=== PATIENT | male | born 1985 | race Two or more races ===

== ENCOUNTER 2021-03-16 00:32 | Inpatient (IN) | payer BC, OTHER ==
[~2021-03-16] VITALS: Ht 177.8 cm; Wt 123.2 kg
[2021-03-16] MEDS ORDERED: DexAMETHasone SOD PHOS 10MG/1ML VIAL INJ IV ONE (01:15)
[2021-03-16 03:05] LABS: Basophils # (auto) 0 10 ^3/uL (0-0.2); Basophils % (auto) 0.4 % (0.0-2.0); Eosinophils # (auto) 0 10 ^3/uL (0-0.8); Hematocrit 45.6 % (41.0-53.0); Hemoglobin 15.8 g/dL (13.5-17.5); Lymphocytes # (auto) 0.9 10 ^3/uL (0.4-5.4); Lymphocytes % (auto) 9.9 % (10.0-50.0); Mean Corpuscular Hemoglobin 27.2 pg (28.0-32.0); Mean Corpuscular Hgb Conc. 34.6 g/dL (32.0-36.0); Mean Corpuscular Volume 78.6 fL (80.0-100.0); Monocytes # (auto) 0.6 10 ^3/uL (0-1.3); Neutrophils # (auto) 7.7 10 ^3/uL (1.6-8.6); Neutrophils % (auto) 83.7 % (37.0-80.0); Nucleated Red Blood Cells % 0.1 %; Red Blood Cells 5.81 10^6/uL (4.5-5.90); Red Cell Distribution Width 14.4 % (11.8-14.3); White Blood Cell 9.2 10^3/uL (4.4-10.8)
[2021-03-16 03:17] LABS: INR 1.09 (0.9-1.15)
[2021-03-16 03:35] LABS: Lactic Acid w/Reflex 2.6 mmol/L (0.4-2.0)
[2021-03-16] MEDS ORDERED: TEMAZEPAM 15 MG CAP PO PRN (06:00)
[2021-03-16] MEDS ORDERED: DOCUSATE SOD 100 MG CAP PO PRN (06:00)
[2021-03-16] MEDS ORDERED: MORPHINE SULFATE INJECTION 2 MG/2 ML SYRG IV PRN (06:00)
[2021-03-16] MEDS ORDERED: HYDROcodone-ACET 5/325MG TAB PO PRN (06:00)
[2021-03-16] MEDS ORDERED: NITROGLYCERIN 0.4 MG SL TAB SL PRN (06:00)
[2021-03-16] MEDS ORDERED: ONDANSETRON HCL 4 MG/2 ML VIAL IV PRN (06:00)
[2021-03-16] MEDS ORDERED: SODIUM CHLORIDE 0.9% 1,000 ML IV ONE (06:00)
[2021-03-16] MEDS: BUDESONIDE (INHALATION) 180 MCG IH IN SCH ×2 (08:01→20:03)
[2021-03-16] MEDS: ALBUTEROL SULF HFA 90MCG INH 200DOSE IN PRN ×2 (08:01→20:03)
[2021-03-16 08:58] VITALS: BP 150/94
[2021-03-16 09:12] LABS: Chloride 94 mmol/L (98-107); Potassium 4.6 mmol/L (3.5-5.1); Sodium 127 mmol/L (136-145)
[2021-03-16 09:13] LABS: Anion Gap 12 (5-15); Carbon Dioxide 21 mmol/L (21-32)
[2021-03-16 09:14] LABS: Alkaline Phosphatase 59 U/L (45-117); Aspartate Aminotransferase 43 U/L (15-37); BUN/Creatinine Ratio 8.4; Blood Urea Nitrogen 14 mg/dL (7-18); GFR African American 62 mL/min; GFR Non-African American 51 mL/min; Glucose 362 mg/dL (74-106)
[2021-03-16 09:15] LABS: Alanine Aminotransferase 44 U/L (16-61); Albumin 2.5 g/dL (3.4-5.0); Bilirubin, Total 0.5 mg/dL (0.2-1.0); Calcium 8.2 mg/dL (8.5-10.1)
[2021-03-16 09:33] VITALS: BP 151/100
[2021-03-16] MEDS: DOXYCYCLINE 100MG/250ML 250 ML IV SCH ×2 (10:00→22:40)
[2021-03-16] MEDS ORDERED: REMDESIVIR PER PHARMACY 0 ML IV SCH (11:00)
[2021-03-16] MEDS: ZINC SULFATE 220mg CAP or TAB PO SCH (11:03)
[2021-03-16] MEDS: FAMOTIDINE (10MG/ML) 2ML VL IV SCH ×2 (11:03→22:39)
[2021-03-16] MEDS: ENOXAPARIN SOD 40 MG/0.4 ML SYRINGE SC SCH ×2 (11:04→22:40)
[2021-03-16] MEDS: ASCORBIC ACID 1,000 MG TAB PO SCH (11:04)
[2021-03-16] MEDS: CHOLECALCIFEROL (VITD3) 2,000 UNIT CAP/TAB PO SCH (11:04)
[2021-03-16] MEDS: MULTIPLE VITAMIN TAB PO SCH (11:04)
[2021-03-16] MEDS ORDERED: TOCILIZUMAB 400 MG in SODIUM CHL 0.9% 80 ML IV ONE ×2 (11:30→11:45)
[2021-03-16] MEDS: IVERMECTIN 3 MG TAB PO SCH (11:48)
[2021-03-16] MEDS: ACETAMINOPHEN 500 MG TAB PO PRN (12:31)
[2021-03-16 13:00] VITALS: BP 158/92
[2021-03-16] MEDS ORDERED: REMDESIVIR 200 MG in NS 210ml LOADING DOSE ADULT IV ONE (13:00)
[2021-03-16] MEDS: DexAMETHasone SOD PHOS 10MG/1ML VIAL INJ IV SCH (15:03)
[2021-03-16 17:00] VITALS: BP 140/91
[2021-03-16 22:00] VITALS: BP 182/89
[2021-03-16] MEDS: hydrALAZINE HCL 20 MG/ML VL IV PRN (22:41)
[2021-03-17 05:00] VITALS: BP 154/89
[2021-03-17 06:40] LABS: Basophils # (auto) 0.1 10 ^3/uL (0-0.2); Basophils % (auto) 0.4 % (0.0-2.0); Eosinophils # (auto) 0 10 ^3/uL (0-0.8); Hematocrit 45.7 % (41.0-53.0); Hemoglobin 15.5 g/dL (13.5-17.5); Lymphocytes # (auto) 1.3 10 ^3/uL (0.4-5.4); Lymphocytes % (auto) 9.8 % (10.0-50.0); Mean Corpuscular Hemoglobin 27.1 pg (28.0-32.0); Mean Corpuscular Volume 79.7 fL (80.0-100.0); Monocytes # (auto) 0.8 10 ^3/uL (0-1.3); Monocytes % (auto) 6.4 % (0.0-12.0); Neutrophils # (auto) 10.6 10 ^3/uL (1.6-8.6); Neutrophils % (auto) 83.4 % (37.0-80.0); Nucleated Red Blood Cells % 0.2 %; Red Blood Cells 5.73 10^6/uL (4.5-5.90); Red Cell Distribution Width 14.8 % (11.8-14.3); White Blood Cell 12.7 10^3/uL (4.4-10.8)
[2021-03-17] MEDS: ALBUTEROL SULF HFA 90MCG INH 200DOSE IN PRN ×2 (08:13→23:03)
[2021-03-17] MEDS: BUDESONIDE (INHALATION) 180 MCG IH IN SCH ×2 (08:13→22:00)
[2021-03-17 09:00] VITALS: BP 158/104
[2021-03-17] MEDS: IVERMECTIN 3 MG TAB PO SCH (09:49)
[2021-03-17] MEDS: CHOLECALCIFEROL (VITD3) 2,000 UNIT CAP/TAB PO SCH (09:50)
[2021-03-17] MEDS: MULTIPLE VITAMIN TAB PO SCH (09:50)
[2021-03-17] MEDS: ENOXAPARIN SOD 40 MG/0.4 ML SYRINGE SC SCH ×2 (09:50→21:44)
[2021-03-17] MEDS: DexAMETHasone SOD PHOS 10MG/1ML VIAL INJ IV SCH (09:50)
[2021-03-17] MEDS: ASCORBIC ACID 1,000 MG TAB PO SCH (09:50)
[2021-03-17] MEDS: FAMOTIDINE (10MG/ML) 2ML VL IV SCH ×2 (09:51→21:44)
[2021-03-17] MEDS: DOXYCYCLINE 100MG/250ML 250 ML IV SCH ×2 (09:51→21:44)
[2021-03-17] MEDS: ZINC SULFATE 220mg CAP or TAB PO SCH (09:51)
[2021-03-17] MEDS ORDERED: TOCILIZUMAB 400 MG in SODIUM CHL 0.9% 80 ML IV ONE (11:45)
[2021-03-17 12:53] VITALS: BP 133/81
[2021-03-17 14:24] LABS: Calcium 8.7 mg/dL (8.5-10.1); Potassium 5.1 mmol/L (3.5-5.1)
[2021-03-17 14:28] LABS: Bilirubin, Total 0.4 mg/dL (0.2-1.0); Total Protein 8.7 g/dL (6.4-8.2)
[2021-03-17 14:45] LABS: Albumin 2.5 g/dL (3.4-5.0); BUN/Creatinine Ratio 17.5
[2021-03-17] MEDS: REMDESIVIR 100mg 100 MG in SODIUM CHL 0.9% 230 ML IV SCH (15:37)
[2021-03-17 17:00] VITALS: BP 143/87
[2021-03-17 20:00] VITALS: BP 134/111
[2021-03-17 22:00] VITALS: BP 134/111
[2021-03-18 05:00] VITALS: BP 134/86
[2021-03-18] MEDS: ALBUTEROL SULF HFA 90MCG INH 200DOSE IN PRN ×2 (06:40→22:18)
[2021-03-18] MEDS: BUDESONIDE (INHALATION) 180 MCG IH IN SCH ×2 (06:40→22:18)
[2021-03-18 08:00] VITALS: BP 155/70
[2021-03-18 09:00] VITALS: BP 155/70
[2021-03-18] MEDS: FAMOTIDINE (10MG/ML) 2ML VL IV SCH ×2 (09:13→22:01)
[2021-03-18] MEDS: DexAMETHasone SOD PHOS 10MG/1ML VIAL INJ IV SCH (09:13)
[2021-03-18] MEDS: IVERMECTIN 3 MG TAB PO SCH (09:14)
[2021-03-18] MEDS: ZINC SULFATE 220mg CAP or TAB PO SCH (09:14)
[2021-03-18] MEDS: ASCORBIC ACID 1,000 MG TAB PO SCH (09:14)
[2021-03-18] MEDS: MULTIPLE VITAMIN TAB PO SCH (09:14)
[2021-03-18] MEDS: DOXYCYCLINE 100MG/250ML 250 ML IV SCH ×2 (09:14→22:01)
[2021-03-18] MEDS: CHOLECALCIFEROL (VITD3) 2,000 UNIT CAP/TAB PO SCH (09:15)
[2021-03-18] MEDS: ENOXAPARIN SOD 40 MG/0.4 ML SYRINGE SC SCH ×2 (09:15→22:01)
[2021-03-18] MEDS: hydrALAZINE HCL 20 MG/ML VL IV PRN (09:17)
[2021-03-18 10:39] LABS: Eosinophils # (auto) 0 10 ^3/uL (0-0.8); Lymphocytes # (auto) 1.2 10 ^3/uL (0.4-5.4); Neutrophils % (auto) 87.4 % (37.0-80.0)
[2021-03-18 10:41] LABS: Basophils # (auto) 0.2 10 ^3/uL (0-0.2); Basophils % (auto) 0.8 % (0.0-2.0); Hematocrit 44.1 % (41.0-53.0); Hemoglobin 14.7 g/dL (13.5-17.5); Lymphocytes % (auto) 6.6 % (10.0-50.0); Mean Corpuscular Hemoglobin 26.7 pg (28.0-32.0); Mean Corpuscular Hgb Conc. 33.5 g/dL (32.0-36.0); Mean Corpuscular Volume 79.7 fL (80.0-100.0); Monocytes % (auto) 5.2 % (0.0-12.0); Neutrophils # (auto) 16.2 10 ^3/uL (1.6-8.6); Nucleated Red Blood Cells % 0.1 %; Red Blood Cells 5.53 10^6/uL (4.5-5.90); Red Cell Distribution Width 14.9 % (11.8-14.3); White Blood Cell 18.5 10^3/uL (4.4-10.8)
[2021-03-18 10:57] LABS: Albumin 2.5 g/dL (3.4-5.0); Calcium 8.5 mg/dL (8.5-10.1); Potassium 4.9 mmol/L (3.5-5.1)
[2021-03-18 11:01] LABS: BUN/Creatinine Ratio 21.7; Bilirubin, Total 0.4 mg/dL (0.2-1.0); Total Protein 8.4 g/dL (6.4-8.2)
[2021-03-18 13:00] VITALS: BP 122/80
[2021-03-18] MEDS: REMDESIVIR 100mg 100 MG in SODIUM CHL 0.9% 230 ML IV SCH (16:38)
[2021-03-18 17:00] VITALS: BP 130/77
[2021-03-18 22:00] VITALS: BP 132/62
[2021-03-19 05:00] VITALS: BP 124/72
[2021-03-19] MEDS: INSULIN LANTUS (GLARGINE) 1 /0.01ml (100units/ml) SC SCH (06:29)
[2021-03-19 06:37] LABS: Basophils # (auto) 0 10 ^3/uL (0-0.2); Eosinophils # (auto) 0 10 ^3/uL (0-0.8)
[2021-03-19 06:40] LABS: Basophils % (auto) 0.2 % (0.0-2.0); Hematocrit 44.1 % (41.0-53.0); Lymphocytes # (auto) 1.7 10 ^3/uL (0.4-5.4); Lymphocytes % (auto) 11.9 % (10.0-50.0); Mean Corpuscular Volume 79.5 fL (80.0-100.0); Monocytes % (auto) 6.7 % (0.0-12.0); Neutrophils # (auto) 11.9 10 ^3/uL (1.6-8.6); Neutrophils % (auto) 81.2 % (37.0-80.0); Nucleated Red Blood Cells % 0.1 %; Red Blood Cells 5.55 10^6/uL (4.5-5.90); Red Cell Distribution Width 14.6 % (11.8-14.3); White Blood Cell 14.7 10^3/uL (4.4-10.8)
[2021-03-19 06:56] LABS: Albumin 2.4 g/dL (3.4-5.0); Calcium 8.6 mg/dL (8.5-10.1); Potassium 4.6 mmol/L (3.5-5.1)
[2021-03-19 07:06] LABS: Bilirubin, Total 0.4 mg/dL (0.2-1.0); Total Protein 7.8 g/dL (6.4-8.2)
[2021-03-19] MEDS: ALBUTEROL SULF HFA 90MCG INH 200DOSE IN PRN ×2 (07:13→23:28)
[2021-03-19] MEDS: BUDESONIDE (INHALATION) 180 MCG IH IN SCH ×2 (07:14→22:54)
[2021-03-19 09:00] VITALS: BP 139/107
[2021-03-19] MEDS: DexAMETHasone SOD PHOS 10MG/1ML VIAL INJ IV SCH (09:57)
[2021-03-19] MEDS: DOXYCYCLINE 100MG/250ML 250 ML IV SCH ×3 (09:58→22:00)
[2021-03-19] MEDS: IVERMECTIN 3 MG TAB PO SCH (09:58)
[2021-03-19] MEDS: ZINC SULFATE 220mg CAP or TAB PO SCH (09:58)
[2021-03-19] MEDS: FAMOTIDINE (10MG/ML) 2ML VL IV SCH ×2 (09:58→22:00)
[2021-03-19] MEDS: MULTIPLE VITAMIN TAB PO SCH (09:58)
[2021-03-19] MEDS: ASCORBIC ACID 1,000 MG TAB PO SCH (09:59)
[2021-03-19] MEDS: CHOLECALCIFEROL (VITD3) 2,000 UNIT CAP/TAB PO SCH (09:59)
[2021-03-19] MEDS: ENOXAPARIN SOD 40 MG/0.4 ML SYRINGE SC SCH ×2 (09:59→22:01)
[2021-03-19] MEDS: hydrALAZINE HCL 20 MG/ML VL IV PRN (10:18)
[2021-03-19 13:00] VITALS: BP 137/104
[2021-03-19] MEDS: REMDESIVIR 100mg 100 MG in SODIUM CHL 0.9% 230 ML IV SCH (15:09)
[2021-03-19 17:00] VITALS: BP 129/73
[2021-03-19 20:00] VITALS: BP 140/80
[2021-03-19 22:00] VITALS: BP 140/80
[2021-03-20 05:00] VITALS: BP 141/93
[2021-03-20 06:28] LABS: Basophils # (auto) 0.1 10 ^3/uL (0-0.2); Eosinophils # (auto) 0 10 ^3/uL (0-0.8); Hemoglobin 15.1 g/dL (13.5-17.5); Nucleated Red Blood Cells % 0.1 %
[2021-03-20 06:30] LABS: Basophils % (auto) 0.7 % (0.0-2.0); Eosinophils % (auto) 0.1 % (0.0-7.0); Hematocrit 45.6 % (41.0-53.0); Lymphocytes % (auto) 13.5 % (10.0-50.0); Mean Corpuscular Hemoglobin 26.4 pg (28.0-32.0); Mean Corpuscular Hgb Conc. 33.1 g/dL (32.0-36.0); Mean Corpuscular Volume 79.8 fL (80.0-100.0); Monocytes # (auto) 0.6 10 ^3/uL (0-1.3); Monocytes % (auto) 4.4 % (0.0-12.0); Neutrophils % (auto) 81.3 % (37.0-80.0); Red Blood Cells 5.72 10^6/uL (4.5-5.90); Red Cell Distribution Width 14.5 % (11.8-14.3); White Blood Cell 14.7 10^3/uL (4.4-10.8)
[2021-03-20 06:38] LABS: Potassium 4.5 mmol/L (3.5-5.1)
[2021-03-20 06:45] LABS: Albumin 2.5 g/dL (3.4-5.0); BUN/Creatinine Ratio 18.6; Calcium 8.5 mg/dL (8.5-10.1)
[2021-03-20 06:47] LABS: Bilirubin, Total 0.6 mg/dL (0.2-1.0); Total Protein 7.6 g/dL (6.4-8.2)
[2021-03-20] MEDS: INSULIN LANTUS (GLARGINE) 1 /0.01ml (100units/ml) SC SCH (06:51)
[2021-03-20] MEDS: ALBUTEROL SULF HFA 90MCG INH 200DOSE IN PRN ×2 (07:09→22:49)
[2021-03-20] MEDS: BUDESONIDE (INHALATION) 180 MCG IH IN SCH ×2 (07:09→21:35)
[2021-03-20 09:00] VITALS: BP 139/82
[2021-03-20] MEDS: ZINC SULFATE 220mg CAP or TAB PO SCH (09:23)
[2021-03-20] MEDS: DOXYCYCLINE 100MG/250ML 250 ML IV SCH ×2 (09:23→22:22)
[2021-03-20] MEDS: DexAMETHasone SOD PHOS 10MG/1ML VIAL INJ IV SCH (09:23)
[2021-03-20] MEDS: FAMOTIDINE (10MG/ML) 2ML VL IV SCH (09:23)
[2021-03-20] MEDS: MULTIPLE VITAMIN TAB PO SCH (09:23)
[2021-03-20] MEDS: ASCORBIC ACID 1,000 MG TAB PO SCH (09:24)
[2021-03-20] MEDS: ENOXAPARIN SOD 40 MG/0.4 ML SYRINGE SC SCH ×2 (09:24→22:21)
[2021-03-20] MEDS: IVERMECTIN 3 MG TAB PO SCH (09:24)
[2021-03-20] MEDS: CHOLECALCIFEROL (VITD3) 2,000 UNIT CAP/TAB PO SCH (09:24)
[2021-03-20 13:00] VITALS: BP 153/86
[2021-03-20] MEDS: REMDESIVIR 100mg 100 MG in SODIUM CHL 0.9% 230 ML IV SCH (15:14)
[2021-03-20 16:56] VITALS: BP 138/76
[2021-03-20 20:00] VITALS: BP 153/70
[2021-03-20] MEDS ORDERED: FUROSEMIDE 40 MG/4 ML VIAL IV ONE (20:00)
[2021-03-20 22:00] VITALS: BP 153/70
[2021-03-21 05:00] VITALS: BP 117/81
[2021-03-21] MEDS: INSULIN LANTUS (GLARGINE) 1 /0.01ml (100units/ml) SC SCH (06:44)
[2021-03-21] MEDS: BUDESONIDE (INHALATION) 180 MCG IH IN SCH ×2 (07:07→18:45)
[2021-03-21] MEDS: ALBUTEROL SULF HFA 90MCG INH 200DOSE IN PRN ×2 (07:07→20:46)
[2021-03-21 07:41] LABS: Basophils # (auto) 0 10 ^3/uL (0-0.2); Basophils % (auto) 0.3 % (0.0-2.0); Eosinophils # (auto) 0.1 10 ^3/uL (0-0.8); Hematocrit 49.6 % (41.0-53.0); Hemoglobin 16.5 g/dL (13.5-17.5); Lymphocytes # (auto) 1.8 10 ^3/uL (0.4-5.4); Lymphocytes % (auto) 12.5 % (10.0-50.0); Mean Corpuscular Hemoglobin 26.6 pg (28.0-32.0); Mean Corpuscular Hgb Conc. 33.4 g/dL (32.0-36.0); Mean Corpuscular Volume 79.5 fL (80.0-100.0); Monocytes # (auto) 0.8 10 ^3/uL (0-1.3); Monocytes % (auto) 5.5 % (0.0-12.0); Neutrophils # (auto) 11.8 10 ^3/uL (1.6-8.6); Neutrophils % (auto) 80.7 % (37.0-80.0); Nucleated Red Blood Cells % 0.3 %; Red Blood Cells 6.23 10^6/uL (4.5-5.90); Red Cell Distribution Width 14.2 % (11.8-14.3); White Blood Cell 14.6 10^3/uL (4.4-10.8)
[2021-03-21 07:46] LABS: BUN/Creatinine Ratio 19.2; Calcium 8.8 mg/dL (8.5-10.1); Potassium 4.4 mmol/L (3.5-5.1)
[2021-03-21 09:00] VITALS: BP 128/84
[2021-03-21] MEDS: DexAMETHasone SOD PHOS 10MG/1ML VIAL INJ IV SCH (10:18)
[2021-03-21] MEDS: FUROSEMIDE 40 MG/4 ML VIAL IV SCH (10:19)
[2021-03-21] MEDS: ASCORBIC ACID 1,000 MG TAB PO SCH (10:20)
[2021-03-21] MEDS: ZINC SULFATE 220mg CAP or TAB PO SCH (10:20)
[2021-03-21] MEDS: MULTIPLE VITAMIN TAB PO SCH (10:20)
[2021-03-21] MEDS: ENOXAPARIN SOD 40 MG/0.4 ML SYRINGE SC SCH ×2 (10:20→21:49)
[2021-03-21] MEDS: CHOLECALCIFEROL (VITD3) 2,000 UNIT CAP/TAB PO SCH (10:20)
[2021-03-21 13:00] VITALS: BP 141/75
[2021-03-21 17:00] VITALS: BP 138/87
[2021-03-21 20:00] VITALS: BP 111/67
[2021-03-21 21:40] VITALS: BP 111/67
[2021-03-22] VITALS (28 sets, daily range): BP systolic 115–178; BP diastolic 68–108
[2021-03-22] MEDS ORDERED: LORazepam 2MG/ML-1ML VIAL IV PRN (02:30)
[2021-03-22] MEDS ORDERED: MORPHINE SULFATE INJECTION 2 MG/2 ML SYRG IV PRN (04:00)
[2021-03-22] MEDS ORDERED: MORPHINE SULFATE INJECTION 2 MG/2 ML SYRG ONE (04:01)
[2021-03-22 04:49] LABS: Basophils # (auto) 0 10 ^3/uL (0-0.2); Basophils % (auto) 0.3 % (0.0-2.0); Eosinophils # (auto) 0.2 10 ^3/uL (0-0.8); Eosinophils % (auto) 1.2 % (0.0-7.0); Hemoglobin 16.5 g/dL (13.5-17.5); Monocytes # (auto) 0.9 10 ^3/uL (0-1.3)
[2021-03-22 04:52] LABS: Hematocrit 48.3 % (41.0-53.0); Lymphocytes # (auto) 1.7 10 ^3/uL (0.4-5.4); Lymphocytes % (auto) 11.4 % (10.0-50.0); Mean Corpuscular Hemoglobin 27.3 pg (28.0-32.0); Mean Corpuscular Hgb Conc. 34.1 g/dL (32.0-36.0); Mean Corpuscular Volume 79.9 fL (80.0-100.0); Neutrophils # (auto) 12.4 10 ^3/uL (1.6-8.6); Neutrophils % (auto) 81.1 % (37.0-80.0); Nucleated Red Blood Cells % 0.1 %; Red Blood Cells 6.05 10^6/uL (4.5-5.90); Red Cell Distribution Width 14.4 % (11.8-14.3); White Blood Cell 15.3 10^3/uL (4.4-10.8)
[2021-03-22 05:03] LABS: BUN/Creatinine Ratio 21.9; Calcium 8.3 mg/dL (8.5-10.1); Magnesium 2.2 mg/dL (1.6-2.6); Potassium 4.5 mmol/L (3.5-5.1)
[2021-03-22 05:05] LABS: Lactic Acid w/Reflex 2.3 mmol/L (0.4-2.0)
[2021-03-22] MEDS: BUDESONIDE (INHALATION) 180 MCG IH IN SCH ×2 (06:43→22:07)
[2021-03-22] MEDS: INSULIN LANTUS (GLARGINE) 1 /0.01ml (100units/ml) SC SCH (07:55)
[2021-03-22] MEDS: DexAMETHasone SOD PHOS 10MG/1ML VIAL INJ IV SCH (09:55)
[2021-03-22] MEDS: ZINC SULFATE 220mg CAP or TAB PO SCH (09:56)
[2021-03-22] MEDS: ASCORBIC ACID 1,000 MG TAB PO SCH (09:56)
[2021-03-22] MEDS: FUROSEMIDE 40 MG/4 ML VIAL IV SCH (09:56)
[2021-03-22] MEDS: MULTIPLE VITAMIN TAB PO SCH (09:56)
[2021-03-22] MEDS: CHOLECALCIFEROL (VITD3) 2,000 UNIT CAP/TAB PO SCH (09:57)
[2021-03-22] MEDS: ENOXAPARIN SOD 40 MG/0.4 ML SYRINGE SC SCH ×2 (09:57→22:43)
[2021-03-22] MEDS ORDERED: DEXTROSE (50%) 50ML SYRG IV PRN (12:30)
[2021-03-22] MEDS: InsuLIN REG 1unit/0.01ml Soln (100units/ml) SC SCH ×2 (17:48→22:44)
[2021-03-22] MEDS: ACCU-CHEK COMFORT CURVE STRIP VI SCH ×2 (17:48→22:43)
[2021-03-22] MEDS: SALINE 0.65 % NASAL SPRAY 45ML BOTTLE EACHNOSTRI SCH ×2 (17:49→22:44)
[2021-03-22] MEDS: Glucerna Carbsteady SHAKE Vanilla 8oz PO SCH (18:48)
[2021-03-23] VITALS (28 sets, daily range): BP systolic 110–152; BP diastolic 67–104
[2021-03-23] MEDS ORDERED: diphenhdrAMINE HCL 50 MG/1 ML VL ONE (03:56)
[2021-03-23] MEDS ORDERED: diphenhdrAMINE HCL 50 MG/1 ML VL IV ONE (04:00)
[2021-03-23] MEDS: SALINE 0.65 % NASAL SPRAY 45ML BOTTLE EACHNOSTRI SCH ×4 (05:36→23:11)
[2021-03-23] MEDS: ACCU-CHEK COMFORT CURVE STRIP VI SCH ×4 (06:31→23:11)
[2021-03-23] MEDS: InsuLIN REG 1unit/0.01ml Soln (100units/ml) SC SCH ×4 (06:32→23:13)
[2021-03-23] MEDS: INSULIN LANTUS (GLARGINE) 1 /0.01ml (100units/ml) SC SCH ×2 (06:33→23:12)
[2021-03-23 06:58] LABS: Basophils # (auto) 0.1 10 ^3/uL (0-0.2); Eosinophils # (auto) 0.3 10 ^3/uL (0-0.8); Hemoglobin 16.7 g/dL (13.5-17.5); Mean Corpuscular Hemoglobin 26.6 pg (28.0-32.0); White Blood Cell 14.3 10^3/uL (4.4-10.8)
[2021-03-23 07:00] LABS: Basophils % (auto) 0.7 % (0.0-2.0); Eosinophils % (auto) 2.2 % (0.0-7.0); Lymphocytes # (auto) 1.9 10 ^3/uL (0.4-5.4); Lymphocytes % (auto) 13.3 % (10.0-50.0); Mean Corpuscular Hgb Conc. 33.3 g/dL (32.0-36.0); Mean Corpuscular Volume 79.7 fL (80.0-100.0); Monocytes # (auto) 0.6 10 ^3/uL (0-1.3); Monocytes % (auto) 4.3 % (0.0-12.0); Neutrophils # (auto) 11.3 10 ^3/uL (1.6-8.6); Neutrophils % (auto) 79.5 % (37.0-80.0); Nucleated Red Blood Cells % 0.2 %; Red Blood Cells 6.28 10^6/uL (4.5-5.90); Red Cell Distribution Width 14.1 % (11.8-14.3)
[2021-03-23 07:11] LABS: Potassium 4.7 mmol/L (3.5-5.1)
[2021-03-23] MEDS: ALBUTEROL SULF HFA 90MCG INH 200DOSE IN PRN ×2 (07:12→21:59)
[2021-03-23] MEDS: BUDESONIDE (INHALATION) 180 MCG IH IN SCH ×2 (07:13→21:58)
[2021-03-23 07:25] LABS: Albumin 2.8 g/dL (3.4-5.0); BUN/Creatinine Ratio 22.1; Bilirubin, Total 0.7 mg/dL (0.2-1.0); CRP High Sensitivity 0.32 mg/dL (< 0.3); Calcium 8.4 mg/dL (8.5-10.1); Total Protein 7.6 g/dL (6.4-8.2)
[2021-03-23] MEDS: Glucerna Carbsteady SHAKE Vanilla 8oz PO SCH ×3 (08:00→18:00)
[2021-03-23] MEDS: DexAMETHasone SOD PHOS 10MG/1ML VIAL INJ IV SCH (09:59)
[2021-03-23] MEDS: ASCORBIC ACID 1,000 MG TAB PO SCH (10:00)
[2021-03-23] MEDS: MULTIPLE VITAMIN TAB PO SCH (10:00)
[2021-03-23] MEDS: ZINC SULFATE 220mg CAP or TAB PO SCH (10:00)
[2021-03-23] MEDS: FUROSEMIDE 40 MG/4 ML VIAL IV SCH (10:00)
[2021-03-23] MEDS: CHOLECALCIFEROL (VITD3) 2,000 UNIT CAP/TAB PO SCH (10:01)
[2021-03-23] MEDS ORDERED: ENOXAPARIN SOD 100 MG/1 ML SYRINGE SC ONE (11:45)
[2021-03-23] MEDS: ENOXAPARIN SOD 150 MG/1 ML SYRINGE SC SCH ×2 (13:49→23:11)
[2021-03-24] VITALS (23 sets, daily range): BP systolic 97–164; BP diastolic 55–104
[2021-03-24 04:17] LABS: Basophils # (auto) 0.1 10 ^3/uL (0-0.2); Eosinophils # (auto) 0.2 10 ^3/uL (0-0.8); Hemoglobin 16.4 g/dL (13.5-17.5); Monocytes # (auto) 0.8 10 ^3/uL (0-1.3); Red Cell Distribution Width 14.1 % (11.8-14.3)
[2021-03-24 04:19] LABS: Basophils % (auto) 0.5 % (0.0-2.0); Eosinophils % (auto) 1.2 % (0.0-7.0); Hematocrit 48.5 % (41.0-53.0); Lymphocytes # (auto) 2.1 10 ^3/uL (0.4-5.4); Lymphocytes % (auto) 14.3 % (10.0-50.0); Mean Corpuscular Hemoglobin 26.8 pg (28.0-32.0); Mean Corpuscular Hgb Conc. 33.9 g/dL (32.0-36.0); Monocytes % (auto) 5.7 % (0.0-12.0); Neutrophils # (auto) 11.3 10 ^3/uL (1.6-8.6); Neutrophils % (auto) 78.3 % (37.0-80.0); Red Blood Cells 6.14 10^6/uL (4.5-5.90); White Blood Cell 14.4 10^3/uL (4.4-10.8)
[2021-03-24 04:35] LABS: Calcium 8.5 mg/dL (8.5-10.1); Potassium 4.4 mmol/L (3.5-5.1)
[2021-03-24 04:37] LABS: BUN/Creatinine Ratio 23.9
[2021-03-24] MEDS: SALINE 0.65 % NASAL SPRAY 45ML BOTTLE EACHNOSTRI SCH ×4 (05:30→21:59)
[2021-03-24] MEDS: ACCU-CHEK COMFORT CURVE STRIP VI SCH ×4 (05:56→21:59)
[2021-03-24] MEDS: InsuLIN REG 1unit/0.01ml Soln (100units/ml) SC SCH ×4 (05:59→22:00)
[2021-03-24] MEDS: Glucerna Carbsteady SHAKE Vanilla 8oz PO SCH ×3 (08:00→18:00)
[2021-03-24] MEDS: DexAMETHasone SOD PHOS 10MG/1ML VIAL INJ IV SCH (09:41)
[2021-03-24] MEDS: ZINC SULFATE 220mg CAP or TAB PO SCH (09:42)
[2021-03-24] MEDS: FUROSEMIDE 40 MG/4 ML VIAL IV SCH (09:42)
[2021-03-24] MEDS: MULTIPLE VITAMIN TAB PO SCH (09:42)
[2021-03-24] MEDS: CHOLECALCIFEROL (VITD3) 2,000 UNIT CAP/TAB PO SCH (09:42)
[2021-03-24] MEDS: ENOXAPARIN SOD 150 MG/1 ML SYRINGE SC SCH ×2 (09:42→21:58)
[2021-03-24] MEDS: ASCORBIC ACID 1,000 MG TAB PO SCH (09:42)
[2021-03-24] MEDS: INSULIN LANTUS (GLARGINE) 1 /0.01ml (100units/ml) SC SCH ×2 (10:00→22:01)
[2021-03-24 10:37] LABS: Basophils # (auto) 0 10 ^3/uL (0-0.2); Basophils % (auto) 0.3 % (0.0-2.0); Lymphocytes # (auto) 1.6 10 ^3/uL (0.4-5.4)
[2021-03-24 10:39] LABS: Eosinophils # (auto) 0.3 10 ^3/uL (0-0.8); Eosinophils % (auto) 2.2 % (0.0-7.0); Hematocrit 50.3 % (41.0-53.0); Hemoglobin 16.8 g/dL (13.5-17.5); Lymphocytes % (auto) 12.5 % (10.0-50.0); Mean Corpuscular Hemoglobin 26.7 pg (28.0-32.0); Mean Corpuscular Hgb Conc. 33.4 g/dL (32.0-36.0); Mean Corpuscular Volume 80.2 fL (80.0-100.0); Monocytes # (auto) 0.8 10 ^3/uL (0-1.3); Monocytes % (auto) 6.3 % (0.0-12.0); Neutrophils % (auto) 78.7 % (37.0-80.0); Nucleated Red Blood Cells % 0.2 %; Red Blood Cells 6.28 10^6/uL (4.5-5.90); Red Cell Distribution Width 14.6 % (11.8-14.3); White Blood Cell 12.7 10^3/uL (4.4-10.8)
[2021-03-24 10:57] LABS: BUN/Creatinine Ratio 20.9; Calcium 8.9 mg/dL (8.5-10.1)
[2021-03-24 11:02] LABS: Potassium 4.7 mmol/L (3.5-5.1)
[2021-03-24] MEDS: BUDESONIDE (INHALATION) 180 MCG IH IN SCH (22:37)
[2021-03-24] MEDS: ALBUTEROL SULF HFA 90MCG INH 200DOSE IN PRN (22:37)
[2021-03-25] VITALS (28 sets, daily range): BP systolic 106–157; BP diastolic 66–122
[2021-03-25] MEDS: SALINE 0.65 % NASAL SPRAY 45ML BOTTLE EACHNOSTRI SCH ×4 (06:08→21:42)
[2021-03-25] MEDS: InsuLIN REG 1unit/0.01ml Soln (100units/ml) SC SCH ×4 (06:19→21:43)
[2021-03-25] MEDS: ACCU-CHEK COMFORT CURVE STRIP VI SCH ×4 (06:19→21:42)
[2021-03-25] MEDS: BUDESONIDE (INHALATION) 180 MCG IH IN SCH ×2 (06:40→21:59)
[2021-03-25] MEDS: ALBUTEROL SULF HFA 90MCG INH 200DOSE IN PRN ×2 (06:40→22:00)
[2021-03-25 07:41] LABS: Eosinophils # (auto) 0.2 10 ^3/uL (0-0.8); Eosinophils % (auto) 1.6 % (0.0-7.0); Hematocrit 47.3 % (41.0-53.0); Hemoglobin 16.1 g/dL (13.5-17.5); Lymphocytes # (auto) 2.6 10 ^3/uL (0.4-5.4); Monocytes % (auto) 6.6 % (0.0-12.0)
[2021-03-25 07:42] LABS: Basophils # (auto) 0.2 10 ^3/uL (0-0.2); Basophils % (auto) 1.3 % (0.0-2.0); Lymphocytes % (auto) 17.2 % (10.0-50.0); Mean Corpuscular Volume 79.3 fL (80.0-100.0); Neutrophils # (auto) 11.1 10 ^3/uL (1.6-8.6); Neutrophils % (auto) 73.3 % (37.0-80.0); Nucleated Red Blood Cells % 0.3 %; Red Blood Cells 5.97 10^6/uL (4.5-5.90); Red Cell Distribution Width 14.1 % (11.8-14.3); White Blood Cell 15.2 10^3/uL (4.4-10.8)
[2021-03-25 07:49] LABS: BUN/Creatinine Ratio 22.5; Calcium 8.4 mg/dL (8.5-10.1); Potassium 4.6 mmol/L (3.5-5.1)
[2021-03-25] MEDS: Glucerna Carbsteady SHAKE Vanilla 8oz PO SCH ×3 (08:00→18:00)
[2021-03-25] MEDS: CHOLECALCIFEROL (VITD3) 2,000 UNIT CAP/TAB PO SCH (09:55)
[2021-03-25] MEDS: ENOXAPARIN SOD 150 MG/1 ML SYRINGE SC SCH ×2 (09:55→21:42)
[2021-03-25] MEDS: FUROSEMIDE 40 MG/4 ML VIAL IV SCH (09:55)
[2021-03-25] MEDS: DexAMETHasone SOD PHOS 10MG/1ML VIAL INJ IV SCH (09:55)
[2021-03-25] MEDS: ASCORBIC ACID 1,000 MG TAB PO SCH (09:55)
[2021-03-25] MEDS: MULTIPLE VITAMIN TAB PO SCH (09:56)
[2021-03-25] MEDS: ZINC SULFATE 220mg CAP or TAB PO SCH (09:56)
[2021-03-25] MEDS: INSULIN LANTUS (GLARGINE) 1 /0.01ml (100units/ml) SC SCH ×2 (10:14→21:44)
[2021-03-26] VITALS (29 sets, daily range): BP systolic 99–141; BP diastolic 53–103
[2021-03-26 04:56] LABS: Basophils # (auto) 0.1 10 ^3/uL (0-0.2); Eosinophils # (auto) 0.1 10 ^3/uL (0-0.8); Nucleated Red Blood Cells % 0.1 %
[2021-03-26 05:00] LABS: Hematocrit 43.5 % (41.0-53.0); Hemoglobin 14.5 g/dL (13.5-17.5); Lymphocytes # (auto) 2.4 10 ^3/uL (0.4-5.4); Lymphocytes % (auto) 17.4 % (10.0-50.0); Mean Corpuscular Hemoglobin 26.4 pg (28.0-32.0); Mean Corpuscular Hgb Conc. 33.4 g/dL (32.0-36.0); Mean Corpuscular Volume 78.9 fL (80.0-100.0); Monocytes % (auto) 7.3 % (0.0-12.0); Neutrophils % (auto) 73.3 % (37.0-80.0); Red Blood Cells 5.51 10^6/uL (4.5-5.90); Red Cell Distribution Width 14.2 % (11.8-14.3); White Blood Cell 13.7 10^3/uL (4.4-10.8)
[2021-03-26 05:20] LABS: Potassium 4.5 mmol/L (3.5-5.1)
[2021-03-26 05:34] LABS: BUN/Creatinine Ratio 29.4; Calcium 8.4 mg/dL (8.5-10.1)
[2021-03-26] MEDS: SALINE 0.65 % NASAL SPRAY 45ML BOTTLE EACHNOSTRI SCH ×3 (05:42→23:00)
[2021-03-26] MEDS: ACCU-CHEK COMFORT CURVE STRIP VI SCH ×4 (06:16→22:00)
[2021-03-26] MEDS: InsuLIN REG 1unit/0.01ml Soln (100units/ml) SC SCH ×4 (06:17→23:00)
[2021-03-26] MEDS: BUDESONIDE (INHALATION) 180 MCG IH IN SCH ×2 (06:23→21:48)
[2021-03-26] MEDS: ALBUTEROL SULF HFA 90MCG INH 200DOSE IN PRN ×2 (06:23→21:48)
[2021-03-26] MEDS: FUROSEMIDE 40 MG/4 ML VIAL IV SCH (08:33)
[2021-03-26] MEDS: CHOLECALCIFEROL (VITD3) 2,000 UNIT CAP/TAB PO SCH (08:34)
[2021-03-26] MEDS: ASCORBIC ACID 1,000 MG TAB PO SCH (08:34)
[2021-03-26] MEDS: DexAMETHasone SOD PHOS 10MG/1ML VIAL INJ IV SCH (08:34)
[2021-03-26] MEDS: ZINC SULFATE 220mg CAP or TAB PO SCH (08:35)
[2021-03-26] MEDS: MULTIPLE VITAMIN TAB PO SCH (08:35)
[2021-03-26] MEDS: ENOXAPARIN SOD 150 MG/1 ML SYRINGE SC SCH (08:35)
[2021-03-26] MEDS: ACETAMINOPHEN 500 MG TAB PO PRN (08:36)
[2021-03-26] MEDS: INSULIN LANTUS (GLARGINE) 1 /0.01ml (100units/ml) SC SCH ×2 (08:40→23:00)
[2021-03-26] MEDS: Glucerna Carbsteady SHAKE Vanilla 8oz PO SCH ×3 (12:01→17:57)
[2021-03-27] VITALS (22 sets, daily range): BP systolic 100–150; BP diastolic 63–95
[2021-03-27 07:19] LABS: Basophils # (auto) 0.1 10 ^3/uL (0-0.2); Eosinophils # (auto) 0.2 10 ^3/uL (0-0.8); Hemoglobin 14.2 g/dL (13.5-17.5); Mean Corpuscular Hemoglobin 26.8 pg (28.0-32.0); Monocytes # (auto) 0.9 10 ^3/uL (0-1.3); Neutrophils # (auto) 6.8 10 ^3/uL (1.6-8.6); White Blood Cell 10.2 10^3/uL (4.4-10.8)
[2021-03-27 07:25] LABS: Basophils % (auto) 0.6 % (0.0-2.0); Hematocrit 42.1 % (41.0-53.0); Lymphocytes # (auto) 2.3 10 ^3/uL (0.4-5.4); Lymphocytes % (auto) 22.6 % (10.0-50.0); Mean Corpuscular Hgb Conc. 33.7 g/dL (32.0-36.0); Mean Corpuscular Volume 79.5 fL (80.0-100.0); Monocytes % (auto) 8.7 % (0.0-12.0); Neutrophils % (auto) 66.1 % (37.0-80.0); Nucleated Red Blood Cells % 0.4 %; Red Cell Distribution Width 14.5 % (11.8-14.3)
[2021-03-27] MEDS: Glucerna Carbsteady SHAKE Vanilla 8oz PO SCH ×3 (08:00→18:00)
[2021-03-27] MEDS: BUDESONIDE (INHALATION) 180 MCG IH IN SCH ×2 (08:14→23:08)
[2021-03-27] MEDS: ALBUTEROL SULF HFA 90MCG INH 200DOSE IN PRN ×2 (08:15→23:05)
[2021-03-27 08:19] LABS: BUN/Creatinine Ratio 25.7; Calcium 8.3 mg/dL (8.5-10.1); Potassium 4.1 mmol/L (3.5-5.1)
[2021-03-27] MEDS: ENOXAPARIN SOD 60 MG/0.6 ML SYRINGE SC SCH ×2 (10:04→23:11)
[2021-03-27] MEDS: ASCORBIC ACID 1,000 MG TAB PO SCH (10:04)
[2021-03-27] MEDS: CHOLECALCIFEROL (VITD3) 2,000 UNIT CAP/TAB PO SCH (10:04)
[2021-03-27] MEDS: MULTIPLE VITAMIN TAB PO SCH (10:05)
[2021-03-27] MEDS: FUROSEMIDE 40 MG/4 ML VIAL IV SCH (10:05)
[2021-03-27] MEDS: DexAMETHasone SOD PHOS 10MG/1ML VIAL INJ IV SCH (10:05)
[2021-03-27] MEDS: ZINC SULFATE 220mg CAP or TAB PO SCH (10:06)
[2021-03-27] MEDS: SALINE 0.65 % NASAL SPRAY 45ML BOTTLE EACHNOSTRI SCH ×4 (18:00→23:09)
[2021-03-27] MEDS: InsuLIN REG 1unit/0.01ml Soln (100units/ml) SC SCH ×3 (18:58→23:10)
[2021-03-27] MEDS: INSULIN LANTUS (GLARGINE) 1 /0.01ml (100units/ml) SC SCH ×2 (18:59→23:10)
[2021-03-27] MEDS: ACCU-CHEK COMFORT CURVE STRIP VI SCH ×3 (19:16→23:00)
[2021-03-28] VITALS (18 sets, daily range): BP systolic 97–158; BP diastolic 52–105
[2021-03-28] MEDS: ACCU-CHEK COMFORT CURVE STRIP VI SCH ×4 (06:05→23:54)
[2021-03-28] MEDS: InsuLIN REG 1unit/0.01ml Soln (100units/ml) SC SCH ×4 (06:06→23:52)
[2021-03-28] MEDS: SALINE 0.65 % NASAL SPRAY 45ML BOTTLE EACHNOSTRI SCH ×4 (06:07→23:50)
[2021-03-28] MEDS: ALBUTEROL SULF HFA 90MCG INH 200DOSE IN PRN ×2 (07:10→22:17)
[2021-03-28] MEDS: BUDESONIDE (INHALATION) 180 MCG IH IN SCH ×2 (07:11→22:17)
[2021-03-28] MEDS: DexAMETHasone SOD PHOS 10MG/1ML VIAL INJ IV SCH (13:02)
[2021-03-28] MEDS: FUROSEMIDE 40 MG/4 ML VIAL IV SCH (13:03)
[2021-03-28] MEDS: ZINC SULFATE 220mg CAP or TAB PO SCH (13:04)
[2021-03-28] MEDS: ASCORBIC ACID 1,000 MG TAB PO SCH (13:05)
[2021-03-28] MEDS: MULTIPLE VITAMIN TAB PO SCH (13:05)
[2021-03-28] MEDS: ENOXAPARIN SOD 60 MG/0.6 ML SYRINGE SC SCH ×2 (13:06→23:53)
[2021-03-28] MEDS: CHOLECALCIFEROL (VITD3) 2,000 UNIT CAP/TAB PO SCH (13:06)
[2021-03-28] MEDS: Glucerna Carbsteady SHAKE Vanilla 8oz PO SCH ×3 (13:08→20:06)
[2021-03-28] MEDS: INSULIN LANTUS (GLARGINE) 1 /0.01ml (100units/ml) SC SCH ×2 (13:12→23:51)
[2021-03-29] VITALS (20 sets, daily range): BP systolic 110–160; BP diastolic 45–104
[2021-03-29] MEDS: ALBUTEROL SULF HFA 90MCG INH 200DOSE IN PRN ×2 (06:19→22:40)
[2021-03-29] MEDS: BUDESONIDE (INHALATION) 180 MCG IH IN SCH ×2 (06:19→22:40)
[2021-03-29] MEDS: SALINE 0.65 % NASAL SPRAY 45ML BOTTLE EACHNOSTRI SCH ×4 (06:30→22:00)
[2021-03-29] MEDS: ACCU-CHEK COMFORT CURVE STRIP VI SCH ×4 (06:31→21:42)
[2021-03-29] MEDS: InsuLIN REG 1unit/0.01ml Soln (100units/ml) SC SCH ×4 (06:32→21:43)
[2021-03-29] MEDS: Glucerna Carbsteady SHAKE Vanilla 8oz PO SCH ×3 (08:41→17:50)
[2021-03-29] MEDS: ZINC SULFATE 220mg CAP or TAB PO SCH (09:14)
[2021-03-29] MEDS: ENOXAPARIN SOD 60 MG/0.6 ML SYRINGE SC SCH ×2 (09:14→21:42)
[2021-03-29] MEDS: ASCORBIC ACID 1,000 MG TAB PO SCH (09:14)
[2021-03-29] MEDS: CHOLECALCIFEROL (VITD3) 2,000 UNIT CAP/TAB PO SCH (09:14)
[2021-03-29] MEDS: DexAMETHasone SOD PHOS 10MG/1ML VIAL INJ IV SCH (09:15)
[2021-03-29] MEDS: FUROSEMIDE 40 MG/4 ML VIAL IV SCH (09:15)
[2021-03-29] MEDS: MULTIPLE VITAMIN TAB PO SCH (09:15)
[2021-03-29] MEDS: INSULIN LANTUS (GLARGINE) 1 /0.01ml (100units/ml) SC SCH ×2 (09:28→21:43)
[2021-03-30 05:34] VITALS: BP 129/70
[2021-03-30 05:55] LABS: Basophils # (auto) 0.1 10 ^3/uL (0-0.2); Eosinophils # (auto) 0.2 10 ^3/uL (0-0.8); Red Blood Cells 4.71 10^6/uL (4.5-5.90)
[2021-03-30 05:56] LABS: Basophils % (auto) 0.7 % (0.0-2.0); Eosinophils % (auto) 1.9 % (0.0-7.0); Hematocrit 37.6 % (41.0-53.0); Hemoglobin 12.7 g/dL (13.5-17.5); Lymphocytes # (auto) 2.6 10 ^3/uL (0.4-5.4); Lymphocytes % (auto) 25.6 % (10.0-50.0); Mean Corpuscular Hemoglobin 26.9 pg (28.0-32.0); Mean Corpuscular Hgb Conc. 33.7 g/dL (32.0-36.0); Mean Corpuscular Volume 79.7 fL (80.0-100.0); Monocytes # (auto) 0.9 10 ^3/uL (0-1.3); Monocytes % (auto) 8.5 % (0.0-12.0); Neutrophils # (auto) 6.3 10 ^3/uL (1.6-8.6); Neutrophils % (auto) 63.3 % (37.0-80.0); Red Cell Distribution Width 14.7 % (11.8-14.3)
[2021-03-30] MEDS: SALINE 0.65 % NASAL SPRAY 45ML BOTTLE EACHNOSTRI SCH ×4 (06:00→21:49)
[2021-03-30 06:31] LABS: BUN/Creatinine Ratio 27.4; Calcium 8.4 mg/dL (8.5-10.1)
[2021-03-30] MEDS: InsuLIN REG 1unit/0.01ml Soln (100units/ml) SC SCH ×4 (06:37→21:46)
[2021-03-30] MEDS: ACCU-CHEK COMFORT CURVE STRIP VI SCH ×4 (06:38→21:49)
[2021-03-30] MEDS: ALBUTEROL SULF HFA 90MCG INH 200DOSE IN PRN ×2 (06:44→19:56)
[2021-03-30] MEDS: BUDESONIDE (INHALATION) 180 MCG IH IN SCH ×2 (06:44→19:55)
[2021-03-30 09:00] VITALS: BP 137/69
[2021-03-30] MEDS: Glucerna Carbsteady SHAKE Vanilla 8oz PO SCH ×3 (09:48→18:12)
[2021-03-30] MEDS: CHOLECALCIFEROL (VITD3) 2,000 UNIT CAP/TAB PO SCH (09:49)
[2021-03-30] MEDS: FUROSEMIDE 40 MG/4 ML VIAL IV SCH (09:49)
[2021-03-30] MEDS: MULTIPLE VITAMIN TAB PO SCH (09:49)
[2021-03-30] MEDS: ZINC SULFATE 220mg CAP or TAB PO SCH (09:49)
[2021-03-30] MEDS: ASCORBIC ACID 1,000 MG TAB PO SCH (09:51)
[2021-03-30] MEDS: ENOXAPARIN SOD 60 MG/0.6 ML SYRINGE SC SCH ×2 (10:00→21:49)
[2021-03-30] MEDS: INSULIN LANTUS (GLARGINE) 1 /0.01ml (100units/ml) SC SCH ×2 (11:54→21:49)
[2021-03-30 13:00] VITALS: BP 102/56
[2021-03-30 17:00] VITALS: BP 127/91
[2021-03-30 22:00] VITALS: BP 137/70
[2021-03-31 02:15] VITALS: BP 137/70
[2021-03-31 05:00] VITALS: BP 134/65
[2021-03-31] MEDS: InsuLIN REG 1unit/0.01ml Soln (100units/ml) SC SCH ×4 (06:40→21:42)
[2021-03-31] MEDS: ACCU-CHEK COMFORT CURVE STRIP VI SCH ×4 (06:40→21:38)
[2021-03-31] MEDS: SALINE 0.65 % NASAL SPRAY 45ML BOTTLE EACHNOSTRI SCH ×4 (06:40→21:38)
[2021-03-31] MEDS: ALBUTEROL SULF HFA 90MCG INH 200DOSE IN PRN ×2 (07:04→22:30)
[2021-03-31] MEDS: BUDESONIDE (INHALATION) 180 MCG IH IN SCH ×2 (07:05→22:30)
[2021-03-31 09:09] VITALS: BP 126/83
[2021-03-31] MEDS: MULTIPLE VITAMIN TAB PO SCH (09:46)
[2021-03-31] MEDS: CHOLECALCIFEROL (VITD3) 2,000 UNIT CAP/TAB PO SCH (09:46)
[2021-03-31] MEDS: ZINC SULFATE 220mg CAP or TAB PO SCH (09:46)
[2021-03-31] MEDS: ENOXAPARIN SOD 60 MG/0.6 ML SYRINGE SC SCH ×2 (09:46→21:38)
[2021-03-31] MEDS: ASCORBIC ACID 1,000 MG TAB PO SCH (09:46)
[2021-03-31] MEDS: FUROSEMIDE 40 MG/4 ML VIAL IV SCH (09:47)
[2021-03-31] MEDS: INSULIN LANTUS (GLARGINE) 1 /0.01ml (100units/ml) SC SCH ×2 (09:58→22:00)
[2021-03-31 10:23] LABS: Basophils # (auto) 0.1 10 ^3/uL (0-0.2); Basophils % (auto) 0.7 % (0.0-2.0); Eosinophils # (auto) 0.4 10 ^3/uL (0-0.8); Hemoglobin 13.5 g/dL (13.5-17.5); Lymphocytes # (auto) 1.7 10 ^3/uL (0.4-5.4); Lymphocytes % (auto) 16.8 % (10.0-50.0)
[2021-03-31 10:25] LABS: BUN/Creatinine Ratio 24.1; Calcium 8.5 mg/dL (8.5-10.1); Eosinophils % (auto) 4.4 % (0.0-7.0); Hematocrit 40.8 % (41.0-53.0); Mean Corpuscular Hemoglobin 26.7 pg (28.0-32.0); Mean Corpuscular Hgb Conc. 33.1 g/dL (32.0-36.0); Mean Corpuscular Volume 80.6 fL (80.0-100.0); Monocytes # (auto) 0.5 10 ^3/uL (0-1.3); Monocytes % (auto) 5.3 % (0.0-12.0); Neutrophils # (auto) 7.2 10 ^3/uL (1.6-8.6); Neutrophils % (auto) 72.8 % (37.0-80.0); Nucleated Red Blood Cells % 0.3 %; Potassium 3.7 mmol/L (3.5-5.1); Red Blood Cells 5.06 10^6/uL (4.5-5.90); Red Cell Distribution Width 14.8 % (11.8-14.3); White Blood Cell 9.9 10^3/uL (4.4-10.8)
[2021-03-31] MEDS: Glucerna Carbsteady SHAKE Vanilla 8oz PO SCH ×3 (11:11→17:18)
[2021-03-31 13:00] VITALS: BP 128/114
[2021-03-31 17:00] VITALS: BP 112/71
[2021-03-31 22:00] VITALS: BP 132/77
[2021-04-01 05:00] VITALS: BP 129/71
[2021-04-01] MEDS: SALINE 0.65 % NASAL SPRAY 45ML BOTTLE EACHNOSTRI SCH ×4 (05:55→22:42)
[2021-04-01 06:22] LABS: Basophils # (auto) 0.1 10 ^3/uL (0-0.2); Eosinophils # (auto) 0.4 10 ^3/uL (0-0.8); Lymphocytes # (auto) 1.7 10 ^3/uL (0.4-5.4); Mean Corpuscular Hgb Conc. 32.4 g/dL (32.0-36.0); Monocytes # (auto) 0.7 10 ^3/uL (0-1.3); Neutrophils # (auto) 5.6 10 ^3/uL (1.6-8.6); White Blood Cell 8.5 10^3/uL (4.4-10.8)
[2021-04-01 06:24] LABS: Basophils % (auto) 0.6 % (0.0-2.0); Eosinophils % (auto) 5.1 % (0.0-7.0); Hematocrit 38.5 % (41.0-53.0); Hemoglobin 12.5 g/dL (13.5-17.5); Lymphocytes % (auto) 20.5 % (10.0-50.0); Mean Corpuscular Hemoglobin 26.3 pg (28.0-32.0); Mean Corpuscular Volume 81.1 fL (80.0-100.0); Monocytes % (auto) 7.7 % (0.0-12.0); Neutrophils % (auto) 66.1 % (37.0-80.0); Nucleated Red Blood Cells % 0.2 %; Red Blood Cells 4.75 10^6/uL (4.5-5.90); Red Cell Distribution Width 15.2 % (11.8-14.3)
[2021-04-01] MEDS: InsuLIN REG 1unit/0.01ml Soln (100units/ml) SC SCH ×4 (06:35→23:05)
[2021-04-01] MEDS: ACCU-CHEK COMFORT CURVE STRIP VI SCH ×4 (06:35→22:43)
[2021-04-01 06:40] LABS: BUN/Creatinine Ratio 21.4; Calcium 8.1 mg/dL (8.5-10.1); Potassium 3.8 mmol/L (3.5-5.1)
[2021-04-01] MEDS: BUDESONIDE (INHALATION) 180 MCG IH IN SCH ×2 (07:12→20:33)
[2021-04-01] MEDS: ALBUTEROL SULF HFA 90MCG INH 200DOSE IN PRN ×2 (07:12→20:34)
[2021-04-01 09:00] VITALS: BP 147/74
[2021-04-01] MEDS: MULTIPLE VITAMIN TAB PO SCH (09:24)
[2021-04-01] MEDS: ASCORBIC ACID 1,000 MG TAB PO SCH (09:24)
[2021-04-01] MEDS: ENOXAPARIN SOD 60 MG/0.6 ML SYRINGE SC SCH ×2 (09:24→22:43)
[2021-04-01] MEDS: ZINC SULFATE 220mg CAP or TAB PO SCH (09:24)
[2021-04-01] MEDS: CHOLECALCIFEROL (VITD3) 2,000 UNIT CAP/TAB PO SCH (09:24)
[2021-04-01] MEDS: FUROSEMIDE 40 MG/4 ML VIAL IV SCH (09:27)
[2021-04-01] MEDS: Glucerna Carbsteady SHAKE Vanilla 8oz PO SCH ×3 (09:30→17:13)
[2021-04-01] MEDS: INSULIN LANTUS (GLARGINE) 1 /0.01ml (100units/ml) SC SCH ×2 (10:31→22:43)
[2021-04-01 13:00] VITALS: BP 112/71
[2021-04-01 17:00] VITALS: BP 121/85
[2021-04-01 22:00] VITALS: BP 108/71
[2021-04-01] MEDS: ACETAMINOPHEN 500 MG TAB PO PRN (23:09)
[2021-04-02 05:00] VITALS: BP 113/56
[2021-04-02] MEDS: SALINE 0.65 % NASAL SPRAY 45ML BOTTLE EACHNOSTRI SCH ×3 (06:24→22:25)
[2021-04-02] MEDS: ACCU-CHEK COMFORT CURVE STRIP VI SCH ×3 (06:25→22:25)
[2021-04-02] MEDS: InsuLIN REG 1unit/0.01ml Soln (100units/ml) SC SCH ×3 (06:25→22:41)
[2021-04-02 06:46] LABS: Calcium 8.3 mg/dL (8.5-10.1); Potassium 4.1 mmol/L (3.5-5.1)
[2021-04-02 06:49] LABS: BUN/Creatinine Ratio 21.3
[2021-04-02 06:56] LABS: Basophils # (auto) 0.1 10 ^3/uL (0-0.2); Hematocrit 36.8 % (41.0-53.0); Hemoglobin 12.2 g/dL (13.5-17.5); Lymphocytes # (auto) 2.3 10 ^3/uL (0.4-5.4); Mean Corpuscular Hemoglobin 26.9 pg (28.0-32.0); Monocytes # (auto) 0.8 10 ^3/uL (0-1.3); Neutrophils # (auto) 4.2 10 ^3/uL (1.6-8.6); White Blood Cell 7.9 10^3/uL (4.4-10.8)
[2021-04-02 06:59] LABS: Basophils % (auto) 0.9 % (0.0-2.0); Eosinophils # (auto) 0.6 10 ^3/uL (0-0.8); Lymphocytes % (auto) 28.5 % (10.0-50.0); Mean Corpuscular Hgb Conc. 33.3 g/dL (32.0-36.0); Mean Corpuscular Volume 80.9 fL (80.0-100.0); Neutrophils % (auto) 53.6 % (37.0-80.0); Red Blood Cells 4.54 10^6/uL (4.5-5.90); Red Cell Distribution Width 15.1 % (11.8-14.3)
[2021-04-02] MEDS: ALBUTEROL SULF HFA 90MCG INH 200DOSE IN PRN (07:16)
[2021-04-02] MEDS: BUDESONIDE (INHALATION) 180 MCG IH IN SCH ×2 (07:16→22:00)
[2021-04-02] MEDS: Glucerna Carbsteady SHAKE Vanilla 8oz PO SCH ×3 (08:00→18:00)
[2021-04-02 09:00] VITALS: BP 145/88
[2021-04-02] MEDS: FUROSEMIDE 40 MG/4 ML VIAL IV SCH (09:14)
[2021-04-02] MEDS: CHOLECALCIFEROL (VITD3) 2,000 UNIT CAP/TAB PO SCH (09:15)
[2021-04-02] MEDS: MULTIPLE VITAMIN TAB PO SCH (09:15)
[2021-04-02] MEDS: ENOXAPARIN SOD 60 MG/0.6 ML SYRINGE SC SCH ×2 (09:15→22:26)
[2021-04-02] MEDS: ASCORBIC ACID 1,000 MG TAB PO SCH (09:15)
[2021-04-02] MEDS: ZINC SULFATE 220mg CAP or TAB PO SCH (09:15)
[2021-04-02] MEDS: INSULIN LANTUS (GLARGINE) 1 /0.01ml (100units/ml) SC SCH ×2 (09:16→23:01)
[2021-04-02 13:00] VITALS: BP 115/79
[2021-04-02] MEDS ORDERED: DEXTROSE (50%) 50ML SYRG IV PRN (16:15)
[2021-04-02 16:57] VITALS: BP 132/85
[2021-04-02 22:00] VITALS: BP 136/82
[2021-04-03] MEDS: ALBUTEROL SULF HFA 90MCG INH 200DOSE IN PRN ×3 (00:45→22:28)
[2021-04-03 05:00] VITALS: BP 157/66
[2021-04-03] MEDS: SALINE 0.65 % NASAL SPRAY 45ML BOTTLE EACHNOSTRI SCH ×3 (05:57→22:28)
[2021-04-03] MEDS: InsuLIN REG 1unit/0.01ml Soln (100units/ml) SC SCH ×4 (06:17→22:34)
[2021-04-03] MEDS: ACCU-CHEK COMFORT CURVE STRIP VI SCH ×4 (06:17→22:29)
[2021-04-03] MEDS: BUDESONIDE (INHALATION) 180 MCG IH IN SCH ×2 (06:50→22:28)
[2021-04-03] MEDS: Glucerna Carbsteady SHAKE Vanilla 8oz PO SCH (08:00)
[2021-04-03 09:00] VITALS: BP 121/74
[2021-04-03] MEDS: FUROSEMIDE 40 MG/4 ML VIAL IV SCH (09:10)
[2021-04-03] MEDS: MULTIPLE VITAMIN TAB PO SCH (09:10)
[2021-04-03] MEDS: ENOXAPARIN SOD 60 MG/0.6 ML SYRINGE SC SCH ×2 (09:11→22:29)
[2021-04-03 13:00] VITALS: BP 98/61
[2021-04-03] MEDS ORDERED: GLIP10TA16 PO (14:49)
[2021-04-03] MEDS ORDERED: METF-371 PO (14:49)
[2021-04-03] MEDS ORDERED: ALBUAER3 IN (14:51)
[2021-04-03] MEDS ORDERED: ASPI-231 PO (14:51)
[2021-04-03] MEDS ORDERED: ATOR20TA50 PO (14:52)
[2021-04-03] MEDS ORDERED: FURO20TA3 PO (14:53)
[2021-04-03 17:00] VITALS: BP 113/82
[2021-04-03 18:59] VITALS: BP 121/74
[2021-04-03 22:00] VITALS: BP 125/65
[2021-04-03] MEDS: INSULIN LANTUS (GLARGINE) 1 /0.01ml (100units/ml) SC SCH (22:00)
== END 2021-04-04 01:09 | disposition home or self-care (01) | DRG 871 ==
LOC: ER 00:36 → TELE 05:56 → TELE-EAST 09:32 → TELE-WESTW 03-21 22:00 → ICU WEST 03-22 02:15 → TELE-EAST 03-29 21:15
PROVIDERS: ADMIT Nurse Practitioner Family; ATTEND Internal Medicine Nephrology
PROC: XW033E5 Introduction of Remdesivir Anti-infective into Peripheral Vein, Percutaneous Approach, New Technology Group 5 (ICD-10-PCS; principal; 2021-03-16)
PROC: XW033H5 Introduction of Tocilizumab into Peripheral Vein, Percutaneous Approach, New Technology Group 5 (ICD-10-PCS; 2021-03-16)
PROC: 05HB33Z Insertion of Infusion Device into Right Basilic Vein, Percutaneous Approach (ICD-10-PCS; 2021-03-16)
PROC: B54MZZA Ultrasonography of Right Upper Extremity Veins, Guidance (ICD-10-PCS; 2021-03-16)
PROC: 05HF33Z Insertion of Infusion Device into Left Cephalic Vein, Percutaneous Approach (ICD-10-PCS; 2021-03-18)
PROC: B54NZZA Ultrasonography of Left Upper Extremity Veins, Guidance (ICD-10-PCS; 2021-03-18)
DX: A41.89 Other specified sepsis (principal); U07.1 COVID-19; J12.82 Pneumonia due to coronavirus disease 2019; J96.01 Acute respiratory failure with hypoxia; Z68.41 Body mass index [BMI] 40.0-44.9, adult; E66.01 Morbid (severe) obesity due to excess calories; D89.839 Cytokine release syndrome, grade unspecified; I10 Essential (primary) hypertension; E11.65 Type 2 diabetes mellitus with hyperglycemia; R79.89 Other specified abnormal findings of blood chemistry
CPT/HCPCS: 36415; 36600; 71045; 80048; 80053; 82306; 82728; 82805; 82962; 83036; 83605; 83615; 83735; 83880; 84484; 85025; 85379; 85610; 86141; 87040; 87426; 93005; 93970; 94640; 94660; 94762; 96361; 96374; 97116; 97163; 97530; G0378; J1100; J1815; J2405; J3490